=== PATIENT | male | born 1955 | race Caucasian/White ===

== ENCOUNTER 2017-09-09 18:25 | Emergency (ER) | payer BC ==
[2017-09-09 19:13] VITALS: BP 151/76
[2017-09-09] MEDS ORDERED: Furosemide TAB* 20 MG PO ONE (19:23)
--- NOTE | 2017-09-09 19:29 | UC ---
General HPI - HPI Summary HPI Summary: Pt presents with c/o sudden onset of penile and scrotal swelling. Pt has generalized edema in bilateral lower extremities. Has hx of CAD and single cardiac stent with no known ejection fraction disorders, no hx of hepatitis or cirrhosis. denies injry, STD exposure, rash, or difficulty voiding, no difficulty breathing or SOB, NO pain in penis or scrotum - History of Current Complaint Chief Complaint: UCGU Stated Complaint: PERSONAL Time Seen by Provider: 09/09/17 18:40 Hx Obtained From: Patient Onset/Duration: Sudden Onset - this moring, Still Present Timing: Constant Onset Severity: Mild Current Severity: Mild Pain Intensity: 0 Associated Signs & Symptoms: Positive: Edema - Allergy/Home Medications Allergies/Adverse Reactions: Allergies Allergy/AdvReac Type Severity Reaction Status Date / Time No Known Allergies Allergy Verified 09/09/17 18:36 Home Medications: Home Medications Gabapentin 300 mg PO SEE INSTRUCTIONS 09/09/17 [History Confirmed 09/09/17] Glimepiride 2 mg PO BID 09/09/17 [History Confirmed 09/09/17] Ketorolac 0.5% OPHTH (NF) 1 drop LEFT EYE QID 09/09/17 [History Confirmed ] Ofloxacin 0.3% OTIC.HEMANTH* [Floxin 0.3% OTIC.HEMANTH*] 1 drop LEFT EYE QID 09/09/17 [ History Confirmed 09/09/17] Pramipexole Di-HCl [Mirapex] 1 mg PO BEDTIME 09/09/17 [History Confirmed ] metFORMIN* [Glucophage 1000 MG TAB *] 1,000 mg PO DAILY 09/09/17 [History Confirmed 09/09/17] prednisoLONE 1% OPHTH.SUSP* [Pred Forte 1%*] 1 drop LEFT EYE QID 09/09/17 [ History Confirmed 09/09/17] PMH/Surg Hx/FS Hx/Imm Hx Previously Healthy: Yes Endocrine History: Diabetes, Dyslipidemia Cardiovascular History: Cardiac Disease - Surgical History Surgical History: Yes Surgery Procedure, Year, and Place: stent placement 2012. Cataract sx--. Circumsized as an adult - Family History Known Family History: Positive: Cardiac Disease - Social History Occupation: Employed Full-time Lives: With Family Alcohol Use: Rare Substance Use Type: None Smoking Status (MU): Never Smoked Tobacco Have You Smoked in the Last Year: No Review of Systems Constitutional: Negative Skin: Negative Eyes: Negative ENT: Negative Respiratory: Negative Cardiovascular: Negative Gastrointestinal: Negative Genitourinary: Other - penile an dscrotal edema Motor: Negative Neurovascular: Negative Musculoskeletal: Negative Neurological: Negative Psychological: Negative Is Patient Immunocompromised?: No All Other Systems Reviewed And Are Negative: Yes Physical Exam Triage Information Reviewed: Yes Appearance: Well-Appearing Vital Signs: Initial Vital Signs Temp 98.3 F 09/09/17 19:07 Pulse 88 09/09/17 19:07 Resp 20 09/09/17 19:07 BP 151/76 09/09/17 19:07 Pulse Ox 99 09/09/17 19:07 Vital Signs Reviewed: Yes Eye Exam: Other Eyes: Positive: Other: - left eye bruising around eye ENT Exam: Normal Neck exam: Normal Respiratory Exam: Normal Respiratory: Positive: Lungs clear Cardiovascular Exam: Normal Cardiovascular: Positive: RRR, No Murmur Male Genital Exam: Positive: Other - generalized edema in penile shaft and scrotum Musculoskeletal: Positive: Edema @ - bilateral LE, non pitting in bilateral thighs, less than 1 pitting in lower legs bilateral. Neurological Exam: Normal Psychological Exam: Normal Skin Exam: Normal Course/Dx - Differential Dx - Multi-Symptom Differential Diagnoses: Other - generalized edema. Provider Diagnoses: generalized edema Discharge - Sign-Out/Discharge Documenting (check all that apply): Discharge/Admit/Transfer - Discharge Plan Condition: Stable Disposition: HOME Prescriptions: Furosemide TAB* [Lasix TAB*] 20 mg PO DAILY #1 tab Furosemide TAB* [Lasix TAB*] 20 mg PO DAILY #2 tab Patient Education Materials: Edema (ED) Referrals: YANNA Matson [Primary Care Provider] - As Soon As Possible Charlie DAMON,Reg Will [Medical Doctor] - As Soon As Possible - Billing Disposition and Condition Condition: STABLE Disposition: Home
== END 2017-09-09 19:45 | disposition home or self-care (01) ==
LOC: UCCORT 18:25
DX: R60.9 Edema, unspecified (principal); E11.9 Type 2 diabetes mellitus without complications; Z79.84 Long term (current) use of oral hypoglycemic drugs; Z98.61 Coronary angioplasty status
CPT/HCPCS: 99212; A9270-GY; G0463

== ENCOUNTER 2017-12-15 14:38 | Emergency (ER) | payer BC ==
--- NOTE | 2017-12-15 20:24 | ED ---
Abdominal Pain/Male - HPI Summary HPI Summary: This pt is a 62 y/o male presenting to [facility] for abd pain for the past 2 to 3 weeks. Pt describes his pain is located in the mid abdomen and does not radiate. He reports it feels "like there's a knot or has chugged a gallon of water." He additionally notes he has dry heaves, nausea, and vomiting. Pt states he has been hospitalized twice for the same where he has had CT scans with and without contrast, and nuclear hida scans. Pt was discharged yesterday after being hospitalized for 1 week with antiemetics. This morning from 06:30 to 12:30 pt had nausea and vomiting. His last episode of emesis was at 12:30 today. Family member reports the next morning after his previous discharge pt began with nausea and vomiting as well. Currently pt rates his abd pain 3/10 in severity, but this morning at 06:30 his pain was 6 and 7 out of 10 in severity. Pt states his abd pain is less severe when vomiting and dry heaving. He has been taking Reglan and Zofran with minimal relief, per pt Reglan seems to help more. Pt last had some beef broth today. Pt has two upcoming appointments with Dr. Mclain, compensation coordinator, for an enzyme food test, endoscopy and colonoscopy. Denies any abdominal surgeries. PMHx includes diabetes (for 20 years now), HTN, cardiac stent (placed 10 days ago). Pt has a disposable pump. - History of Current Complaint Chief Complaint: EDAbdPain Time Seen by Provider: 12/15/17 20:16 Hx Obtained From: Patient Onset/Duration: Lasting Weeks - 2-3, Still Present Timing: Lasting Weeks - 2-3 Severity Initially: Severe Severity Currently: Mild Pain Intensity: 3 Pain Scale Used: 0-10 Numeric Location: Other - POS: mid abdomen Radiates: No Aggravating Factor(s): Nothing Alleviating Factor(s): Nothing Associated Signs And Symptoms: Positive: Nausea, Vomiting. Negative: Fever, Chest Pain - Allergies/Home Medications Allergies/Adverse Reactions: Allergies Allergy/AdvReac Type Severity Reaction Status Date / Time No Known Allergies Allergy Verified 09/09/17 18:36 Home Medications: Home Medications Aspirin 81 mg PO DAILY 12/15/17 [History Confirmed 12/15/17] Furosemide TAB* [Lasix TAB*] 40 mg PO DAILY 12/15/17 [History Confirmed 12/15/17 ] Insulin LISPRO* [HumaLOG*] 56 unit SUBCUT DAILY 12/15/17 [History Confirmed ] Lisinopril 10 mg PO DAILY 12/15/17 [History Confirmed 12/15/17] Metoclopramide HCl 10 mg PO TID PRN 12/15/17 [History Confirmed 12/15/17] Metoprolol Tartrate TAB* [Lopressor TAB*] 25 mg PO BID 12/15/17 [History Confirmed 12/15/17] Ondansetron HCl [Zofran 4 MG TAB] 4 mg PO Q8HR PRN 12/15/17 [History Confirmed 12/15/17] Potassium Chlor TAB* [Klor Con ER TAB*] 20 meq PO DAILY 12/15/17 [History Confirmed 12/15/17] Ticagrelor* [Brilinta 90 MG*] 90 mg PO BID 12/15/17 [History Confirmed 12/15/17] PMH/Surg Hx/FS Hx/Imm Hx Endocrine/Hematology History: Reports: Hx Diabetes Cardiovascular History: Reports: Hx Hypertension - Surgical History Surgery Procedure, Year, and Place: stent placement 2012. Cataract sx--. Circumsized as an adult Infectious Disease History: No Infectious Disease History: Reports: Hx Shingles Denies: Traveled Outside the [place] in Last 30 Days - Family History Known Family History: Positive: Cardiac Disease - Social History Alcohol Use: Rare Substance Use Type: Reports: None Smoking Status (MU): Never Smoked Tobacco Have You Smoked in the Last Year: No Review of Systems Negative: Fever, Chills Negative: Chest Pain Gastrointestinal: Other - dry heaves, abd distension Positive: Abdominal Pain, Vomiting, Nausea All Other Systems Reviewed And Are Negative: Yes Physical Exam - Summary Physical Exam Summary: Appearance: Well-appearing, Well-nourished, lying in bed comfortably Skin: Warm, dry, no obvious rash Eyes: sclera anicteric, no conjunctival pallor ENT: mucous membranes moist, pharynx appears normal Neck: Supple, nontender Respiratory: Clear to auscultation, no signs of respiratory distress Cardiovascular: Normal S1, S2. No murmurs. Normal distal pulses in tibial and radial bilaterally. Abdomen: Soft, nontender, normal active bowel sounds present Musculoskeletal: Normal, Strength/ROM Intact Neurological: A&Ox3, awake and alert, mentation is normal, speech is fluent and appropriate Psychiatric: affect is normal, does not appear anxious or depressed Triage Information Reviewed: Yes Vital Signs On Initial Exam: Initial Vitals Temp Pulse Resp BP Pulse Ox 97.3 F 77 16 107/75 97 12/15/17 15:09 12/15/17 15:09 12/15/17 15:09 12/15/17 15:09 12/15/17 15:09 Vital Signs Reviewed: Yes Diagnostics - Vital Signs Vital Signs Temp Pulse Resp BP Pulse Ox 12/15/17 19:40 98.1 F 76 16 94/57 98 12/15/17 16:57 98.1 F 74 14 101/73 99 12/15/17 15:09 97.3 F 77 16 107/75 97 - Laboratory Result Diagrams: 12/15/17 20:36 12/15/17 20:36 Lab Statement: Any lab studies that have been ordered have been reviewed, and results considered in the medical decision making process. Abdominal Pain Fem Course/Dx - Course Course Of Treatment: This is a 62-year-old long-term diabetic man who has developed intermittent nausea, vomiting, and abdominal pain over the past several weeks. I received some records from the hospital in [facility]. He had also been there for a heart problem and apparently had a non-STEMI for which she was sent to [place] and had a stent done. He had a ultrasound gallbladder that showed a question of cholecystitis, but a follow-up HIDA scan was negative. The surgeon who evaluated him there did not do feel that this was likely related to his gallbladder and that in any event with his recent VT, he would not want to operate on him electively. The patient at present has controlled symptoms, and is scheduled for the appropriate studies through his compensation coordinator. His lab studies done here today do not show any evidence of dehydration, nor do his vital signs are physical exam. I encouraged him to follow up as planned with his compensation coordinator, and to increase his Reglan to 10 mg in the morning. The patient is comfortable with going home at this point. - Diagnoses Provider Diagnoses: Diabetic gastroparesis Discharge - Sign-Out/Discharge Documenting (check all that apply): Patient Departure - Discharge - Discharge Plan Condition: Good Disposition: HOME Patient Education Materials: Diabetic Gastroparesis (DC) Referrals: Satish Solis MD [Medical Doctor] - - Attestation Statements Document Initiated by Scribe: Yes Documenting Scribe: Margarita Soliman Provider For Whom Scribe is Documenting (Include Credential): Pedro Reyes MD Scribe Attestation: Margarita Arevalo, scribed for Pedro Reyes MD on 12/16/17 at [id number].
[2017-12-15 20:44] LABS: ABS Basophils 0.1 10^3/ul (0-0.2); ABS Eosinophils 0.1 10^3/ul (0-0.6); ABS Lymphocytes 1.5 10^3/ul (1.0-4.8); ABS Monocytes 0.7 10^3/ul (0-0.8); ABS Neutrophils 4.6 10^3/ul (1.5-7.7); ABS Nucleated RBC 0 10^3/ul; Eosinophil % 1.8 % (0-6); Hematocrit 40 % (42-52); Hemoglobin 14.5 g/dl (14.0-18.0); Lymphocyte % 21.8 % (25-47); Mean Corpuscular HGB Conc 36 g/dl (31-36); Mean Corpuscular Hemoglobin 30 pg (27-31); Mean Corpuscular Volume 83 fL (80-94); Mean Platelet Volume 8.6 um3 (7.4-10.4); Nucleated Red Blood Cells % 0.3; Platelet Count 217 10^3/ul (150-450); Red Blood Count 4.86 10^6/ul (4.00-5.40); Red Cell Distribution Width 14 % (10.5-15)
[2017-12-15 21:00] LABS: EGFR Non-African American 98.6 (>60)
[2017-12-16 03:55] VITALS: BP 174/99
== END 2017-12-15 22:28 | disposition home or self-care (01) ==
LOC: ED 14:38
DX: E11.43 Type 2 diabetes mellitus with diabetic autonomic (poly)neuropathy (principal); K31.84 Gastroparesis; R10.9 Unspecified abdominal pain; R11.2 Nausea with vomiting, unspecified; Z95.5 Presence of coronary angioplasty implant and graft; I10 Essential (primary) hypertension
CPT/HCPCS: 36415; 80053; 83605; 83690; 85025; 86140; 99283